=== PATIENT | female | born 1990 | race Asian ===

== ENCOUNTER 2019-06-28 16:14 | Emergency (ER) | payer OTHER ==
[2019-06-28 18:10] VITALS: BP 120/78
--- NOTE | 2019-06-28 19:07 | Emergency Department Report ---
Chief Complaint: Dental/Oral Stated Complaint: TOOTHACHE Time Seen by Provider: 06/28/19 19:02 - HPI History of Present Illness: 29 y o female presents to ED cc of dental pain x 5 days no dental trauma needs dental she states that she called dentist the dentist has, no appt till August She presents here today for evaluation of dental pain. She denies fever assess chills/nausea vomiting or any other problems - ROS Review of Systems: as noted in HPI - Exam Vital Signs: Vital Signs 06/28/19 18:08 Temperature 98.5 F Pulse Rate 77 Respiratory 18 Rate Blood Pressure 120/78 O2 Sat by Pulse 100 Oximetry Physical Exam: ENT: Mucous membranes moist. Airway clear no, respiratory distress Gingival enlargement, no abscess, no bleeding. MSE screening note: Focused history and physical exam performed. Due to findings the following was ordered: ED Medical Decision Making - Medical Decision Making 29-year-old female presents with dental pain secondary to caries Patient on the traumatic injury to the mouth. Discussed the patient will continue antibiotic and pain meds and needs to follow-up with dentist. Patient states she understands and will follow-up with her dentist. ED Disposition for MSE Clinical Impression: Pain due to dental caries Disposition: Z-07 MED SCREENING EXAM-LEFT Is pt being admited?: No Does the pt Need Aspirin: No Condition: Stable Instructions: Dental Caries (ED), Toothache (ED) Additional Instructions: follow up with dentist Prescriptions: Clindamycin [Clindamycin CAP] 300 mg PO Q8H #15 cap Ibuprofen [Motrin 800 MG tab] 800 mg PO Q8HR PRN #30 tablet PRN Reason: Pain Acetaminophen/Codeine [Tylenol /Codeine # 3 tab] 1 tab PO Q6H PRN #10 tab PRN Reason: Pain Referrals: [facility] [Outside] - 3-5 Days [facility] [Outside] - 3-5 Days Forms: Work/School Release Form(ED) Time of Disposition: 19:12
== END 2019-06-28 19:30 | disposition left against medical advice (07) ==
LOC: EDBD → ED 16:14
DX: K02.9 Dental caries, unspecified (principal); Z88.0 Allergy status to penicillin; Z88.1 Allergy status to other antibiotic agents; Z88.5 Allergy status to narcotic agent
CPT/HCPCS: 99281